=== PATIENT | female | born 1995 | race African-American/Black ===

== ENCOUNTER 2019-07-18 02:54 | Emergency (ER) | payer SELFPAY ==
[~2019-07-18] VITALS: Ht 177.8 cm; Wt 69.0 kg
[2019-07-18 02:57] VITALS: BP 138/81
[2019-07-18] MEDS ORDERED: IBUPROFEN 200 MG TABLET PO ONE (03:30)
[2019-07-18] MEDS ORDERED: DEXAMETHASONE 4 MG TABLET PO ONE (03:30)
[2019-07-18] MEDS ORDERED: DEXAMETHASONE 4 MG TABLET ONE ×2 (03:55→03:56)
[2019-07-18] MEDS ORDERED: IBUPROFEN 600 MG TABLET ONE (03:55)
--- NOTE | 2019-07-18 04:00 | NUR ---
BREAK RN: PIV PLACED FOR CT, LABS DRAWN AND SENT, PATIETN MEDICATED PER EMAR, TOLERATED WELL. DENIES NEEDS AT THIS TIME
[2019-07-18 04:04] LABS: BASOPHILS # (AUTO) 0.02 x10^3/uL (0-0.1); BASOPHILS % (AUTO) 0 % (0-1); EOSINOPHILS # (AUTO) 0.18 x10^3/uL (0-0.4); EOSINOPHILS % (AUTO) 2 % (1-7); LYMPHOCYTES # (AUTO) 0.89 x10^3/uL (1-3.4); LYMPHOCYTES % (AUTO) 10 % (22-44); MD NO; MEAN CORPUSCULAR HEMOGLOBIN 28.3 pg (27.0-34.8); MEAN CORPUSCULAR HGB CONC 32.7 g/dL (32.4-35.8); MEAN CORPUSCULAR VOLUME 86.5 fL (80-100); MEAN PLATELET VOLUME 8.4 fL (7.4-10.4); MONOCYTES # (AUTO) 0.65 x10^3/uL (0.2-0.8); MONOCYTES % (AUTO) 7 % (2-9); NEUTROPHILS # (AUTO) 7.05 x10^3/uL (1.8-6.8); NEUTROPHILS % (AUTO) 80 % (42-75); PLATELET COUNT 227 x10^3/uL (130-400); RED BLOOD COUNT 4.93 x10^6/uL (3.82-5.3); RED CELL DISTRIBUTION WIDTH 14.1 % (9.6-15.2)
[2019-07-18 04:14] LABS: ALBUMIN 3.2 g/dL (3.4-5.0); ANION GAP 6 mmol/L (5-15); CALCIUM 8.5 mg/dL (8.5-10.1); CHLORIDE 109 mmol/L (98-107); CREATININE 0.92 mg/dL (0.55-1.02)
[2019-07-18] MEDS ORDERED: OMNIPAQUE 350 MG/ML, 100ML BOTTLE ONE (04:43)
--- NOTE | 2019-07-18 07:00 | NUR ---
report received from helen peterson.
--- NOTE | 2019-07-18 07:16 | NUR ---
Patient given discharge instructions and they have confirmed that they understand the instructions. Patient ambulatory with steady gait.
== END 2019-07-18 07:17 ==
LOC: ED 06:20
DX: L04.0 Acute lymphadenitis of face, head and neck (principal)
CPT/HCPCS: 36415; 70491; 80048; 82040; 85025; 87081; 87147; 87880; 99285; Q9967

== ENCOUNTER 2019-10-18 21:24 | Emergency (ER) | payer OTHER ==
[~2019-10-18] VITALS: Ht 177.8 cm; Wt 66.0 kg
[2019-10-18] MEDS ORDERED: MORPHINE SULFATE 4 MG/ML, 1ML ONE (21:41)
[2019-10-18] MEDS ORDERED: ONDANSETRON 2MG/ML, 2ML ONE (21:41)
--- NOTE | 2019-10-18 21:45 | NUR ---
PIV PLACED, LABS DRAWN AND COLLECTED BY CONSUMER SAFETY INSPECTOR. PT AMBULATED TO RESTROOM WITH STEADY GAIT TO PROVIDE URINE SAMPLE. UA COLLECTED AND TAKEN BY CONSUMER SAFETY INSPECTOR. MEDS ADMIN PER JUL. TWO [employer] OFFICERS AT BEDSIDE. PT TAKEN TO XRAY.
[2019-10-18 21:50] LABS: BASOPHILS # (AUTO) 0.15 x10^3/uL (0-0.1); BASOPHILS % (AUTO) 3 % (0-1); EOSINOPHILS # (AUTO) 0.13 x10^3/uL (0-0.4); EOSINOPHILS % (AUTO) 2 % (1-7); LYMPHOCYTES # (AUTO) 1.81 x10^3/uL (1-3.4); LYMPHOCYTES % (AUTO) 35 % (22-44); MD NO; MEAN CORPUSCULAR HEMOGLOBIN 27.1 pg (27.0-34.8); MEAN CORPUSCULAR HGB CONC 32.6 g/dL (32.4-35.8); MEAN CORPUSCULAR VOLUME 83.2 fL (80-100); MEAN PLATELET VOLUME 8.3 fL (7.4-10.4); MONOCYTES # (AUTO) 0.28 x10^3/uL (0.2-0.8); MONOCYTES % (AUTO) 5 % (2-9); NEUTROPHILS # (AUTO) 2.83 x10^3/uL (1.8-6.8); NEUTROPHILS % (AUTO) 55 % (42-75); PLATELET COUNT 476 x10^3/uL (130-400); RED BLOOD COUNT 5.02 x10^6/uL (3.82-5.3); RED CELL DISTRIBUTION WIDTH 18.4 % (9.6-15.2)
[2019-10-18 21:58] LABS: ALANINE AMINOTRANSFERASE 24 U/L (12-78); ALBUMIN 3.8 g/dL (3.4-5.0); ANION GAP 7 mmol/L (5-15); CALCIUM 9.1 mg/dL (8.5-10.1); CHLORIDE 104 mmol/L (98-107); CREATININE 0.91 mg/dL (0.55-1.02)
[2019-10-18] MEDS ORDERED: ONDANSETRON 2MG/ML, 2ML IVPush ONE (22:00)
[2019-10-18] MEDS ORDERED: MORPHINE SULFATE 4 MG/ML, 1ML IVPush PRN (22:00)
[2019-10-18 22:02] LABS: ALKALINE PHOSPHATASE 82 U/L (45-117); BILIRUBIN,TOTAL 0.4 mg/dL (0.2-1.0); TOTAL PROTEIN 7.9 g/dL (6.4-8.2)
[2019-10-18 22:10] LABS: MICROSCOPIC INDICATED
--- NOTE | 2019-10-18 22:22 | NUR ---
PT STATES SHE FEELS BETTER AFTER PAIN MEDS.
--- NOTE | 2019-10-18 22:25 | NUR ---
MEDICAL RECORDS FROM KAREEN LITTLEJOHN. REVIEWING
--- NOTE | 2019-10-18 23:05 | NUR ---
REPORT GIVEN TO KENNETH MURILLO.
[2019-10-18 23:55] VITALS: BP 120/87
== END 2019-10-18 23:56 | disposition home or self-care (01) ==
LOC: ED 21:40
DX: N73.0 Acute parametritis and pelvic cellulitis (principal); F17.200 Nicotine dependence, unspecified, uncomplicated
CPT/HCPCS: 36415; 74021; 80053; 81001; 83690; 84703; 85025; 87086; 96374; 96375; 99284; J2270; J2405